=== PATIENT | female | born 1970 | race Caucasian/White ===

== ENCOUNTER 2018-01-10 08:00 | Day surgery (SDC) | payer BC ==
[~2018-01-10] VITALS: Ht 175.3 cm; Wt 97.7 kg
[~2018-01-10 08:00] MED LIST: EFFEXOR XR37.5 MG PO; LASIX20 MG PO; ZYRTEC10 M3 PO
[2018-01-10 09:26] VITALS: BP 117/77
[2018-01-10 12:30] VITALS: BP 165/83
[2018-01-10 13:19] VITALS: BP 144/88
== END 2018-01-10 13:30 | disposition home or self-care (01) ==
LOC: SDC 08:00
PROC: 0CTPXZZ Resection of Tonsils, External Approach (ICD-10-PCS; principal; 2018-01-10)
DX: J35.01 Chronic tonsillitis (principal); I10 Essential (primary) hypertension; M19.90 Unspecified osteoarthritis, unspecified site; Z88.0 Allergy status to penicillin; Z88.2 Allergy status to sulfonamides; Z88.1 Allergy status to other antibiotic agents
CPT/HCPCS: J0131; J0330; J1170; J2250; J2405; J3010; Q0175